=== PATIENT | female | born 1955 | race Caucasian/White ===

== ENCOUNTER 2017-11-26 09:13 | Emergency (ER) | payer OTHER ==
[~2017-11-26] VITALS: Ht 165.1 cm; Wt 105.0 kg
[~2017-11-26 09:13] MED LIST: HYDR25TA PO; LISI-662 PO; OXYB5XL PO
[2017-11-26] MEDS ORDERED: IBUPROFEN 800 MG TABLET PO ONE (10:45)
[2017-11-26] MEDS ORDERED: LIDOCAINE HCL 5% TRANSDERMAL PATCH TD ONE (11:45)
[2017-11-26 12:20] VITALS: BP 144/88
== END 2017-11-26 12:36 | disposition home or self-care (01) ==
LOC: EMS 09:15
DX: M25.561 Pain in right knee (principal); I10 Essential (primary) hypertension
CPT/HCPCS: 29505; 99284